=== PATIENT | male | born 1960 | race Two or more races ===

== ENCOUNTER 2023-12-01 22:58 | Emergency (ER) | payer OTHER ==
[~2023-12-01] VITALS: Ht 182.9 cm; Wt 90.5 kg
[2023-12-02 02:32] VITALS: BP 138/84; PULSE 75; RESP 16; TEMP 97.7; O2SAT 95
== END 2023-12-02 03:08 | disposition home or self-care (01) ==
LOC: ER 22:58
DX: S00.03XA Contusion of scalp, initial encounter (principal); W22.8XXA Striking against or struck by other objects, initial encounter; Y93.89 Activity, other specified; Y92.89 Other specified places as the place of occurrence of the external cause; Y99.8 Other external cause status
CPT/HCPCS: 70450